=== PATIENT | male | born 1970 | race Caucasian/White ===

== ENCOUNTER 2021-05-11 08:00 | Outpatient (CLI) | payer OTHER ==
--- NOTE | 2021-05-11 11:41 | XRAY Report ---
PROCEDURE: Chest 2 View X-Ray INDICATIONS: Productive cough TECHNIQUE: 2 view(s) of the chest. COMPARISON: None. FINDINGS: Surgical changes and devices: None. Lungs and pleura: No pleural effusions or pneumothorax. Lungs are clear. Mediastinum: Mediastinal contours are normal. Heart size is normal. Bones and chest wall: No suspicious bony abnormalities. Soft tissues appear unremarkable. IMPRESSION: No acute cardiopulmonary process demonstrated radiographically. Reviewed by: Daniel Evans MD on 05/11/2021 11:40 AM [facility] Approved by: Daniel Evans MD on 05/11/2021 11:40 AM [facility] Station ID: [id number]
== END 2021-05-11 23:59 | disposition home or self-care (01) ==
LOC: DI.S 08:00
PROVIDERS: ATTEND Physician Assistant Medical
DX: R05.8 Other specified cough (principal)

== ENCOUNTER 2021-12-12 11:21 | Emergency (ER) | payer OTHER ==
[2021-12-12 11:50] LABS: BASOPHILS # (AUTO) 0.1 10^3/uL (0.0-0.1); BASOPHILS % (AUTO) 1.4 %; EOSINOPHILS # (AUTO) 0.6 10^3/uL (0.0-0.7); EOSINOPHILS % (AUTO) 6.6 %; HCT - HEMATOCRIT 47.8 % (42.0-52.0); HGB - HEMOGLOBIN 15.6 g/dL (14.0-18.0); LYMPHOCYTES # (AUTO) 1.7 10^3/uL (1.5-3.5); LYMPHOCYTES % (AUTO) 17.3 %; MEAN CORPUSCULAR HEMOGLOBIN 29.7 pg (27.0-31.0); MEAN CORPUSCULAR HGB CONC 32.6 g/dL (32.0-36.0); MEAN CORPUSCULAR VOLUME 90.9 fL (80.0-94.0); MEAN PLATELET VOLUME 10.2 fL (7.4-11.4); MONOCYTES # (AUTO) 0.6 10^3/uL (0.0-1.0); MONOCYTES % (AUTO) 6.2 %; NEUTROPHILS # (AUTO) 6.6 10^3/uL (1.5-6.6); NRBC ABSOLUTE COUNT (AUTO) 0.03 x10^3/uL; NUCLEATED RED BLOOD CELLS AUTO 0.3 /100WBC; PLT - PLATELET COUNT 225 10^3/uL (130-450); RED BLOOD COUNT 5.26 10^6/uL (4.70-6.10); RED CELL DISTRIBUTION WIDTH 12.7 % (12.0-15.0); WHITE BLOOD COUNT 9.7 x10^3/uL (4.8-10.8)
[2021-12-12 12:06] LABS: ALBUMIN 4.5 g/dL (3.2-5.5); ALBUMIN/GLOBULIN RATIO 1.5 (1.0-2.2); BILIRUBIN,TOTAL 0.9 mg/dL (0.2-1.0); CALCIUM 9.3 mg/dL (8.5-10.3); CREATININE 0.8 mg/dL (0.6-1.2); POTASSIUM 4.3 mmol/L (3.5-5.0); TOTAL PROTEIN 7.6 g/dL (6.7-8.2)
--- NOTE | 2021-12-12 14:28 | ED Physician Documentation ---
PD HPI BACK PAIN - Stated complaint Stated Complaint: BACK PAIN - Chief complaint Chief Complaint: Abd Pain - History obtained from History obtained from: Patient - History of Present Illness Timing - onset: Today (several hours ago abruptly at home.) Timing - details: Abrupt onset, Still present Pain level max: 10 Pain level now: 6 Location: Mid, Right (right flank to right lower abd pain abruptly, not improved with position.) Quality: Pain, Sharp. No: Spasm Associated symptoms: No: Fever, Weakness, Numbness, Incontinent of urine Improves with: No: Rest, Position, Meds (tylenol and ibuprofen at home few hours ago.) Worsened by: No: Movement, Twisting, Palpation Contributing factors: No: Lifting, Twisting, Trauma Similar symptoms before: Has not had sx before Recently seen: Not recently seen Review of Systems Constitutional: reports: Myalgias (chronic due to MS, no new areas of pain.). denies: Fever, Chills Nose: denies: Rhinorrhea / runny nose, Congestion Throat: denies: Sore throat Cardiac: denies: Chest pain / pressure Respiratory: denies: Cough GI: reports: Abdominal Pain, Nausea, Vomiting (several times at onset of the pain). denies: Diarrhea : denies: Dysuria, Frequency Neurologic: denies: Generalized weakness, Focal weakness PD PAST MEDICAL HISTORY - Past Medical History Cardiovascular: None Respiratory: None Neuro: Multiple sclerosis Endocrine/Autoimmune: None - Past Surgical History Past Surgical History: No - Present Medications Home Medications: Ambulatory Orders Medication Instructions Recorded Confirmed Ondansetron Odt [Zofran] 4 mg TL Q6H PRN #10 tablet 12/12/21 Tamsulosin [Flomax] 0.4 mg PO DAILY #5 cap 12/12/21 dexAMETHasone [Decadron] 4 mg PO DAILY #5 tablet 12/12/21 oxyCODONE [Roxicodone] 5 mg PO Q6H PRN #12 tablet 12/12/21 - Allergies Allergies/Adverse Reactions: Allergies Allergy/AdvReac Type Severity Reaction Status Date / Time No Known Drug Allergies Allergy Verified 12/12/21 11:30 PD ED PE NORMAL - Vitals Vital signs reviewed: Yes - General General: Alert and oriented X 3, No acute distress, Well developed/nourished - Neck Neck: Supple, no meningeal sign, No adenopathy - Cardiac Cardiac: RRR, No murmur - Respiratory Respiratory: Clear bilaterally - Abdomen Abdomen: Normal bowel sounds, Soft. No: Non tender (some tenderness without guarding RLQ/mid abd area. No percussion tenderness. ) - Male Male : Deferred - Rectal Rectal: Deferred - Back Back: No spinal TTP, Other (right CVA area tender mildly to percussion.) - Derm Derm: Normal color, Warm and dry Results - Vitals Vitals: Vital Signs - 24 hr 12/12/21 12/12/21 12/12/21 11:31 15:00 17:22 Temperature 37.5 C Heart Rate 77 93 117 H Respiratory 16 18 18 Rate Blood Pressure 133/80 H 126/86 H 120/94 H O2 Saturation 99 97 98 Oxygen O2 Source Room air - Labs Labs: Laboratory Tests 12/12/21 12/12/21 12/12/21 11:40 11:47 11:47 WBC 9.7 RBC 5.26 Hgb 15.6 Hct 47.8 MCV 90.9 MCH 29.7 MCHC 32.6 RDW 12.7 Plt Count 225 MPV 10.2 Neut # (Auto) 6.6 Lymph # (Auto) 1.7 Swisher # (Auto) 0.6 Eos # (Auto) 0.6 Baso # (Auto) 0.1 Absolute Nucleated RBC 0.03 Nucleated RBC % 0.3 Sodium 140 Potassium 4.3 Chloride 102 Carbon Dioxide 27 Anion Gap 11.0 BUN 11 Creatinine 0.8 Estimated GFR (MDRD) 102 Glucose 198 H Calcium 9.3 Total Bilirubin 0.9 AST 65 H ALT 90 H Alkaline Phosphatase 68 Total Protein 7.6 Albumin 4.5 Globulin 3.1 Albumin/Globulin Ratio 1.5 Lipase 43 Urine Color YELLOW Urine Clarity CLEAR Urine pH 6.0 Ur Specific [place] 1.010 Urine Protein NEGATIVE Urine Glucose (UA) NEGATIVE Urine Ketones NEGATIVE Urine Occult Blood LARGE H Urine Nitrite NEGATIVE Urine Bilirubin NEGATIVE Urine Urobilinogen 0.2 (NORMAL) Ur Leukocyte Esterase TRACE H Urine RBC 6-10 H Urine WBC 0-3 Ur Squamous Epith Cells NONE SEEN Urine Bacteria Rare Ur Microscopic Review INDICATED Urine Culture Comments INDICATED - Rads (name of study) KUB CT Radiology: Prelim report reviewed (3 mm distal urteral stone with mod hydronephrosis. at least 2 nonobstructing stones in right kidney. ), See rad report PD MEDICAL DECISION MAKING - ED course Complexity details: reviewed results (discussed with patient and gave copy of CT report and some images printed out. ), considered differential (sounds likely kidney stone. he declined opiod meds here as pain was improving to mild already. ), d/w patient Departure - Departure Disposition: 01 Home, Self Care Clinical Impression: Right sided abdominal pain, Ureterolithiasis Condition: Stable Record reviewed to determine appropriate education?: Yes Instructions: ED Stone Renal W Colic Prescriptions: dexAMETHasone [Decadron] 4 mg PO DAILY #5 tablet Tamsulosin [Flomax] 0.4 mg PO DAILY #5 cap oxyCODONE [Roxicodone] 5 mg PO Q6H PRN #12 tablet PRN Reason: Pain Ondansetron Odt [Zofran] 4 mg TL Q6H PRN #10 tablet PRN Reason: Nausea / Vomiting Comments: Your pain is from a small 3 mm kidney stone passing down the ureter. It is most of the way to the bladder but still at the end of the ureter. We would try to promote passage of this a little bit sooner with a combination of anti-inflammatories and an antispasmodic for the ureter (Decadron and tamsulosin). Stay well-hydrated but no reason to over hydrate per se. Tylenol if needed for mild pains or naproxen/ibuprofen. Add ondansetron if needed for nausea. Add oxycodone if needed for worse pain. I transmitted prescriptions for these to [facility] in [place]. Return to the ER if needed for severe pain. The majority of stones of this size will pass over several days. Follow-up with your primary care if not improving in that timeframe and still needing medication for pain. I am prescribing a short course of narcotic pain medication for you. These are potentially dangerous and addictive medications that should be used carefully. These medications may constipate you. Take an owyp-ref-kuyungr stool softener such as docusate twice daily with plenty of water while taking these medications. If you go 24 hours without a bowel movement, take [id number]-ryedrxw MiraLAX, per package instructions. Do not drink or drive while taking these medications. If you received narcotic or sedating medications while in the emergency department do not drive for 24 hours. Store this medication in a safe, secure place and out of reach of children. It is a violation of federal law to give or sell this medication to another person or to use in a manner other than prescribed. The ED will not refill narcotic prescriptions, including prescriptions lost or stolen. You can dispose of unwanted medications at the [facility] office or at several pharmacies such as [facility]. Discharge Date/Time: 12/12/21 17:22
[2021-12-12 14:49] LABS: BILIRUBIN,URINE NEGATIVE (NEGATIVE); GLUCOSE, URINE (UA) NEGATIVE (NEGATIVE); KETONES,URINE (UA) NEGATIVE (NEGATIVE); LEUKOCYTE ESTERASE, URINE TRACE (NEGATIVE); NITRITE,URINE NEGATIVE (NEGATIVE); OCCULT BLOOD,URINE LARGE (NEGATIVE); PROTEIN,URINE NEGATIVE (NEGATIVE); UROBILINOGEN,URINE 0.2 (NORMAL) E.U./dL (NORMAL)
[2021-12-12 14:50] LABS: CLARITY,URINE CLEAR (CLEAR)
[2021-12-12 14:59] LABS: BACTERIA,URINE Rare /HPF (None Seen); SQUAMOUS EPITHELIAL CELL,UR NONE SEEN (<= Few); WBC,URINE 0-3 /HPF (0-3)
--- NOTE | 2021-12-12 15:52 | CT Report ---
PROCEDURE: Abdomen/Pelvis WO INDICATIONS: right flank/abd pain today TECHNIQUE: Noncontrast 5 mm thick sections acquired from the diaphragms to the symphysis. 5 mm coronal and sagi ttal reformats were then performed. For radiation dose reduction, the following was used: automated exposure control, adjustment of mA and/or kV according to patient size. COMPARISON: None. FINDINGS: Image quality: Excellent. ABDOMEN: Lung bases: Lung bases are clear. Heart size is normal. Solid organs: Diffuse fatty liver infiltration can be seen. The liver demonstrates normal size. No liver lesions are detected. The spleen demonstrates normal size and demonstrates no suspicious lesi ons. Gallbladder wall does not appear thickened. Pancreas is normal in contours. No adrenal nodu les. Within the distal right ureter, there is a 3 mm obstructing stone seen, as on series 6 image 73 and o n series 3 image 171. There is associated mild to moderate right-sided hydroureter and hydronephrosis . Bilateral nonobstructing kidney stones are seen, which measure 1 to 2 mm. No left-sided hydronephrosi s is seen. The kidneys demonstrate normal size. Peritoneum and bowel: Unenhanced bowel loops demonstrate normal wall thickness and caliber. No free fluid or air. Nodes and vessels: No retroperitoneal or mesenteric adenopathy by size criteria. Aorta and inferior vena cava are normal in caliber. Miscellaneous: No ventral hernias. PELVIS: Genitourinary: Bladder wall thickness is normal. Miscellaneous: No inguinal adenopathy. There is a moderately sized fat-containing left inguinal her liliane. Bones: No suspicious bony lesions. No vertebral body compression fractures. IMPRESSION: 3 mm obstructing stone within the distal right ureter, with associated hydroureter and hydronephrosis . Tiny bilateral nonobstructing kidney stones are seen. Incidental note is made of: Fatty liver infiltration Fat-containing left inguinal hernia Reviewed by: Manuel Almanza MD on 12/12/2021 2:50 PM [facility] Approved by: Manuel Almanza MD on 12/12/2021 2:50 PM [facility] Station ID: [id number]
[2021-12-12] MEDS ORDERED: ACETAMINOPHEN 325 MG TABLET PO STA (16:35)
[2021-12-12] MEDS ORDERED: TAMSULOSIN 0.4 MG CAPSULE PO STA (16:35)
[2021-12-12] MEDS ORDERED: CHERRY SYRUP 10 ML UDC PO ONE (16:35)
[2021-12-12] MEDS ORDERED: DEXAMETHASONE 10 MG/ML VIAL PO STA (16:35)
[2021-12-12 17:24] VITALS: BP 120/94
== END 2021-12-12 17:22 | disposition home or self-care (01) ==
LOC: ED 11:21
DX: N13.2 Hydronephrosis with renal and ureteral calculous obstruction (principal); G35 Multiple sclerosis
CPT/HCPCS: 36415; 74176; 80053; 81001; 83690; 85025; 87086; 99284; A9270; 81003

== ENCOUNTER 2022-11-19 13:04 | Outpatient (CLI) | payer OTHER ==
--- NOTE | 2022-11-19 20:25 | Ultrasound Report ---
PROCEDURE: Pelvic Limited or F/U INDICATIONS: INGUINAL HERNIA TECHNIQUE: Real-time transabdominal scanning was performed of the pelvic organs, with image documentation. COMPARISON: None. FINDINGS: Ultrasound images of the left groin were performed demonstrating a left-sided inguinal hernia with a 2.9 cm defect in the wall. The hernia does not fully reduce. No peristalsing bowel is identified. IMPRESSION: Fat-containing left inguinal hernia which does not fully reduce. Reviewed by: Markus Ferguson on 11/19/2022 7:24 PM [facility] Approved by: Markus Ferguson on 11/19/2022 7:24 PM [facility] Station ID: [id number]
== END 2022-11-19 13:05 | disposition home or self-care (01) ==
LOC: DI 13:04
PROVIDERS: ATTEND Nurse Practitioner Family
DX: K40.90 Unilateral inguinal hernia, without obstruction or gangrene, not specified as recurrent (principal)

== ENCOUNTER 2023-01-12 10:29 | Day surgery (SDC) | payer OTHER ==
[2023-01-12] MEDS ORDERED: LACTATED RINGERS 1,000 ML IV ONE ×2 (10:30→14:32)
[2023-01-12] MEDS ORDERED: ceFAZolin 2 GM VIAL ONE (11:01)
[2023-01-12] MEDS ORDERED: ALBUTEROL NEB 2.5 MG/3 ML INH ONE (11:30)
[2023-01-12] MEDS ORDERED: PROPOFOL 500 MG/50 ML 500 MG/50 ML VIAL ONE (11:35)
[2023-01-12] MEDS ORDERED: KETAMINE 200 MG/20 ML VIAL ONE (11:36)
[2023-01-12] MEDS ORDERED: fentaNYL 100 MCG/2 ML VIAL ONE ×2 (11:36→15:18)
[2023-01-12] MEDS ORDERED: NALOXONE 0.4 MG/ML VIAL IVP PRN (11:38)
[2023-01-12] MEDS ORDERED: ONDANSETRON 4 MG/2 ML VIAL IVP PRN ×2 (11:38→14:02)
[2023-01-12] MEDS ORDERED: ATROPINE ABBOJECT 1 MG/10 ML SYRINGE IVP PRN (11:38)
[2023-01-12] MEDS ORDERED: ePHEDrine 50 MG/ML VIAL IVP PRN (11:38)
[2023-01-12] MEDS ORDERED: ALBUTEROL NEB 2.5 MG/3 ML INH PRN (11:38)
[2023-01-12] MEDS ORDERED: HYDROmorphone 0.5 MG/0.5 ML SYRINGE IVP PRN ×2 (11:38→14:02)
[2023-01-12] MEDS ORDERED: fentaNYL 100 MCG/2 ML VIAL IVP PRN (11:38)
--- NOTE | 2023-01-12 11:38 | ANESTHESIA ---
Pre-Anesthesia VS, & Labs - Diagnosis L inguinal hernia - Procedure L open inguinal hernia repair Vital Signs: Temp Pulse Resp BP Pulse Ox O2 Flow Rate 36.0 C L 84 18 130/94 H 96 01/12/23 10:30 01/12/23 10:30 01/12/23 10:30 01/12/23 10:30 01/12/23 10:30 Height: 5 ft 7 in Weight (kg): 90 kg Body Mass Index: 31.1 BMI Classification: Obese - NPO >8 hours - Lab Results Current Lab Results: Laboratory Tests 01/12/23 10:54: POC Whole Bld Glucose 170 H Lab results reviewed: Yes Home Medications and Allergies Home Medications: Ambulatory Orders Albuterol 2.5 mg INH TID PRN 01/09/23 Albuterol Sulf [Ventolin Hfa Inhaler] 1 - 2 puffs INH Q4HR PRN 01/09/23 Dextroamphetamine/Amphetamine [Dextroamp-Amphetamine 5 mg Tab] 10 mg PO DAILY 01/09/23 Fluticasone/Salmeterol [Advair 250-50 Diskus] 1 each IH BID 01/09/23 Lisinopril [Zestril] 10 mg PO DAILY 01/09/23 Metformin HCl 1,000 mg PO BID 01/09/23 Montelukast [Singulair] 10 mg PO QPM 01/09/23 Pregabalin [Lyrica] 75 mg PO BID 01/09/23 Pseudoephedrine HCl [12 Hour Decongestant] 120 mg PO DAILY 01/09/23 Tadalafil [Cialis] 1 - 2 tab PO PRN PRN 01/09/23 Triamcinolone 0.1% Oint [Kenalog 0.1% Oint] 1 applic TOP BID PRN 01/09/23 Tysabri 300 mg IV ONCE 01/09/23 glyBURIDE [Glyburide] 5 mg PO QPM 01/09/23 glyBURIDE [Glyburide] 7.5 mg PO DAILY 01/09/23 Topiramate [Topiramate ER] 100 mg PO DAILY 01/12/23 Albuterol 2.5 mg INH TID PRN 01/09/23 Albuterol Sulf [Ventolin Hfa Inhaler] 1 - 2 puffs INH Q4HR PRN 01/09/23 Dextroamphetamine/Amphetamine [Dextroamp-Amphetamine 5 mg Tab] 10 mg PO DAILY 01/09/23 Fluticasone/Salmeterol [Advair 250-50 Diskus] 1 each IH BID 01/09/23 Lisinopril [Zestril] 10 mg PO DAILY 01/09/23 Metformin HCl 1,000 mg PO BID 01/09/23 Montelukast [Singulair] 10 mg PO QPM 01/09/23 Pregabalin [Lyrica] 75 mg PO BID 01/09/23 Pseudoephedrine HCl [12 Hour Decongestant] 120 mg PO DAILY 01/09/23 Tadalafil [Cialis] 1 - 2 tab PO PRN PRN 01/09/23 Triamcinolone 0.1% Oint [Kenalog 0.1% Oint] 1 applic TOP BID PRN 01/09/23 Tysabri 300 mg IV ONCE 01/09/23 glyBURIDE [Glyburide] 5 mg PO QPM 01/09/23 glyBURIDE [Glyburide] 7.5 mg PO DAILY 01/09/23 Topiramate [Topiramate ER] 100 mg PO DAILY 01/12/23 Allergies/Adverse Reactions: Allergies Allergy/AdvReac Type Severity Reaction Status Date / Time No Known Drug Allergies Allergy Verified 12/12/21 11:30 Anes History & Medical History - Anesthetic History Anesthesia Complications: reports: No previous complications Family history of Anesthesia Complications: Denies Family history of Malignant Hyperthermia: Denies - Medical History Cardiovascular: reports: None Pulmonary: reports: Asthma, Sleep apnea, CPAP use Gastrointestinal: reports: None Urinary: reports: None Neuro: reports: Multiple sclerosis Musculoskeletal: reports: Chronic back pain, Other Endocrine/Autoimmune: reports: Type 2 diabetes Skin: reports: None Smoking Status: Never smoker Psychosocial: reports: Cannabis - Surgical History Eyes Ears Nose Throat (EENT): reports: Tonsil/Adenoidectomy Exam General: Alert, Oriented x3, Cooperative Dental: WNL Mouth Openin Fingerbreadth Neck Mobility: Normal Mallampati classification: III Thyromental Distance: 4-6 cm Respiratory: Lungs clear Cardiovascular: Regular rate Plan Anesthesia Type: General Consent for Procedure(s) Verified and Reviewed: Yes Code Status: Attempt Resuscitation ASA classification: 3-Severe systemic disease Is this case an emergency?: No
[2023-01-12] MEDS ORDERED: BUPIVACAINE 0.25% PF 30 ML VIAL ONE ×2 (11:39→12:34)
[2023-01-12] MEDS ORDERED: LACTATED RINGERS 1,000 ML IV SCH (12:00)
[2023-01-12] MEDS ORDERED: BUPIVACAINE 0.25% PF 30 ML VIAL SUBQ ONE (12:29)
[2023-01-12] MEDS ORDERED: LACTATED RINGERS 50 ML IV ONE (13:55)
[2023-01-12] MEDS ORDERED: HYDROcod/ACETAM 5/325 MG TABLET PO PRN (14:02)
--- NOTE | 2023-01-12 14:11 | OPERATIVE REPORT ---
Operative Report - General Procedure Date: 01/12/23 Planned Procedure: open left inguinal hernia repair Pre-Op Diagnosis: left inguinal hernia Procedure Performed: open repair incarcerated slider type inguinal hernia Post Op Diagnosis: slider inguinal hernia, incarcerated - Procedure Note Primary Surgeon: puneet bermudez Anesthesia Technique: General LMA, Local Pathology: not sent Estimated Blood Loss (mL): 2 Drain/Tube Type: Other (none) Indications: painful hernia bulge Findings: incarcerated slider type hernia with corner of bladder Complications: none - Other Other Information/Narrative: Patient was properly identified brought to the operating room and placed in supine position. Sequential compression devices were placed. General endotracheal anesthesia was induced. He was prepped and draped in a sterile fashion and given preoperative antibiotics. Local anesthetic was given throughout the procedure. A 5 cm incision was made in the direction of Marin's lines just cephalad of the pubic tubercle. Dissection proceeded with cutting current cautery. The superficial epigastric vein was identified clamped divided and tied with 3-0 Vicryl. Dissection proceeded down to the aponeurosis. The aponeurosis was opened in the direction of its fibers and extended to the external ring. Cord structures were mobilized and brought up. The nerves were carefully protected and preserved. Cord structures were mobilized and brought up. An indirect inguinal hernia was present. The hernia sac was mobilized off the cord structures. He had a large slider type hernia measuring approximately 6 to 8 x 4 cm. The hernia sac was opened. Tissue consistent with edge of the bladder was carefully mobilized from within the hernia sac and reduced. The hernia sac was then closed from the inside with a 2-0 silk pursestring suture. Preperitoneal fat was removed. The base was tied with 2 O vicryl. Polypropylene mesh was cut to size and with tails. The mesh was secured with multiple interrupted 0 Ethibond sutures. Sutures were placed along the pubic tubercle, Jorje's ligament area and along the shelving border of Poupart's ligament. Sutures were placed medially along the abdominal wall musculature and internal oblique. The medial tail of the mesh was secured to the shelving border of Poupart's ligament with 3 interrupted 0 ethibond sutures recreating the internal ring of appropriate size. An additional suture was placed in the crotch of the mesh recreating an internal ring of appropriate size. Aponeurosis was closed with a running 2-0 Vicryl suture. The opposite was closed with interrupted 3-0 Vicryl suture. Buried interrupted subdermal 3-0 Vicryl sutures were then placed. And was closed with a running 4-0 Monocryl subcuticular suture. Dressing was applied. Patient was awakened and brought to recovery in good condition.
[2023-01-12] MEDS ORDERED: HYDROmorphone 1 MG/ML CARPUJECT ONE (15:15)
[2023-01-12] MEDS ORDERED: HYDROcod/ACETAM 5/325 MG TABLET ONE (16:06)
[2023-01-12] MEDS ORDERED: ONDANSETRON 4 MG/2 ML VIAL ONE (16:27)
[2023-01-12 16:29] VITALS: BP 134/90; O2SAT 94
== END 2023-01-12 10:30 | disposition home or self-care (01) ==
LOC: SDS 10:29
PROVIDERS: ATTEND Surgery
DX: K40.30 Unilateral inguinal hernia, with obstruction, without gangrene, not specified as recurrent (principal); E11.9 Type 2 diabetes mellitus without complications; J45.909 Unspecified asthma, uncomplicated; G47.30 Sleep apnea, unspecified; E66.9 Obesity, unspecified; Z68.31 Body mass index [BMI] 31.0-31.9, adult; Z79.84 Long term (current) use of oral hypoglycemic drugs
CPT/HCPCS: 49507; C1781; J1170; J3490; J7120

== ENCOUNTER 2023-05-16 08:00 | Outpatient (CLI) | payer OTHER ==
--- NOTE | 2023-05-16 13:11 | XRAY Report ---
PROCEDURE: Chest 2V INDICATIONS: ACUTE BRONCHITIS TECHNIQUE: 2 views of the chest were acquired. COMPARISON: None. FINDINGS: Surgical changes and devices: None. Lungs and pleura: No pleural effusions or pneumothorax. Lungs are clear. Mediastinum: Mediastinal contours appear normal. Heart size is normal. Bones and chest wall: No suspicious bony lesions. Overlying soft tissues appear unremarkable. IMPRESSION: No acute cardiopulmonary process. Reviewed by: Mirtha Reinoso MD, PhD on 05/16/2023 1:[address] [facility] Approved by: Mirtha Reinoso MD, PhD on 05/16/2023 1:[address] [facility] Station ID: [id number]
== END 2023-05-16 23:59 | disposition home or self-care (01) ==
LOC: DI.S 08:00
PROVIDERS: ATTEND Physician Assistant
DX: J20.9 Acute bronchitis, unspecified (principal)

== ENCOUNTER 2023-05-30 12:00 | Outpatient (CLI) | payer OTHER ==
[2023-05-30 15:10] LABS: BILIRUBIN,URINE NEGATIVE (NEGATIVE); GLUCOSE, URINE (UA) >=1000 mg/dL (NEGATIVE); KETONES,URINE (UA) NEGATIVE (NEGATIVE); LEUKOCYTE ESTERASE, URINE NEGATIVE (NEGATIVE); NITRITE,URINE NEGATIVE (NEGATIVE); OCCULT BLOOD,URINE NEGATIVE (NEGATIVE); PROTEIN,URINE NEGATIVE (NEGATIVE); UROBILINOGEN,URINE 0.2 (NORMAL) E.U./dL (NORMAL)
[2023-05-30 15:13] LABS: BASOPHILS # (AUTO) 0.1 10^3/uL (0.0-0.1); EOSINOPHILS # (AUTO) 0.4 10^3/uL (0.0-0.7); EOSINOPHILS % (AUTO) 4.3 %; HCT - HEMATOCRIT 47.6 % (42.0-52.0); HGB - HEMOGLOBIN 15.1 g/dL (14.0-18.0); LYMPHOCYTES # (AUTO) 3.7 10^3/uL (1.5-3.5); LYMPHOCYTES % (AUTO) 42.7 %; MEAN CORPUSCULAR HEMOGLOBIN 28.6 pg (27.0-31.0); MEAN CORPUSCULAR HGB CONC 31.7 g/dL (32.0-36.0); MEAN CORPUSCULAR VOLUME 90.2 fL (80.0-94.0); MEAN PLATELET VOLUME 11.9 fL (7.4-11.4); MONOCYTES # (AUTO) 0.9 10^3/uL (0.0-1.0); MONOCYTES % (AUTO) 9.8 %; NEUTROPHILS # (AUTO) 3.6 10^3/uL (1.5-6.6); NEUTROPHILS % (AUTO) 41.2 %; NRBC ABSOLUTE COUNT (AUTO) 0.03 x10^3/uL; NUCLEATED RED BLOOD CELLS AUTO 0.3 /100WBC; PLT - PLATELET COUNT 204 10^3/uL (130-450); RED BLOOD COUNT 5.28 10^6/uL (4.70-6.10); RED CELL DISTRIBUTION WIDTH 13.7 % (12.0-15.0); WHITE BLOOD COUNT 8.8 x10^3/uL (4.8-10.8)
[2023-05-30 15:14] LABS: CLARITY,URINE CLEAR (CLEAR)
[2023-05-30 15:42] LABS: ALBUMIN 4.4 g/dL (3.2-5.5); ALBUMIN/GLOBULIN RATIO 1.8 (1.0-2.2); BILIRUBIN,TOTAL 0.7 mg/dL (0.2-1.0); CALCIUM 9.3 mg/dL (8.5-10.3); CREATININE 0.7 mg/dL (0.6-1.3); POTASSIUM 3.7 mmol/L (3.5-4.5); TOTAL PROTEIN 6.9 g/dL (6.4-8.9)
[2023-05-30 15:47] LABS: BACTERIA,URINE None Seen /HPF (None Seen); RBC,URINE 0-5 /HPF (0-5); SQUAMOUS EPITHELIAL CELL,UR RARE Squamous (<= Few); WBC,URINE 0-3 /HPF (0-3)
[2023-05-30 21:23] LABS: ESTIMATED AVERAGE GLUCOSE 229 mg/dL (70-100); HEMOGLOBIN A1c% 9.6 % (4.27-6.07)
== END 2023-05-30 12:01 | disposition home or self-care (01) ==
LOC: LAB.S 12:00
PROVIDERS: ATTEND Emergency Medicine
DX: E11.9 Type 2 diabetes mellitus without complications (principal)
CPT/HCPCS: 36415; 80053; 81001; 83036; 85025; 87086

== ENCOUNTER 2023-09-22 09:18 | Outpatient (CLI) | payer OTHER ==
[2023-09-22 15:06] LABS: BASOPHILS # (AUTO) 0.1 10^3/uL (0.0-0.1); BASOPHILS % (AUTO) 1.5 %; EOSINOPHILS # (AUTO) 0.6 10^3/uL (0.0-0.7); HGB - HEMOGLOBIN 14.9 g/dL (14.0-18.0); LYMPHOCYTES # (AUTO) 3.5 10^3/uL (1.5-3.5); LYMPHOCYTES % (AUTO) 39.7 %; MEAN CORPUSCULAR HEMOGLOBIN 29.5 pg (27.0-31.0); MEAN CORPUSCULAR HGB CONC 33.1 g/dL (32.0-36.0); MEAN CORPUSCULAR VOLUME 89.1 fL (80.0-94.0); MEAN PLATELET VOLUME 11.4 fL (7.4-11.4); MONOCYTES # (AUTO) 0.8 10^3/uL (0.0-1.0); MONOCYTES % (AUTO) 8.6 %; NEUTROPHILS # (AUTO) 3.8 10^3/uL (1.5-6.6); NEUTROPHILS % (AUTO) 42.3 %; NRBC ABSOLUTE COUNT (AUTO) 0.09 x10^3/uL; PLT - PLATELET COUNT 195 10^3/uL (130-450); RED BLOOD COUNT 5.05 10^6/uL (4.70-6.10); RED CELL DISTRIBUTION WIDTH 13.2 % (12.0-15.0); WHITE BLOOD COUNT 8.9 x10^3/uL (4.8-10.8)
[2023-09-22 15:15] LABS: ALBUMIN 4.4 g/dL (3.2-5.5); ALBUMIN/GLOBULIN RATIO 1.6 (1.0-2.2); BILIRUBIN,TOTAL 0.6 mg/dL (0.2-1.0); CALCIUM 10.5 mg/dL (8.5-10.3); CREATININE 0.7 mg/dL (0.6-1.3); POTASSIUM 3.8 mmol/L (3.5-4.5); TOTAL PROTEIN 7.2 g/dL (6.4-8.9)
[2023-09-22 19:56] LABS: ESTIMATED AVERAGE GLUCOSE 252 mg/dL (70-100); HEMOGLOBIN A1c% 10.4 % (4.27-6.07)
== END 2023-09-22 09:19 | disposition home or self-care (01) ==
LOC: LAB.S 09:18
PROVIDERS: ATTEND Physician Assistant Medical
DX: E11.9 Type 2 diabetes mellitus without complications (principal)
CPT/HCPCS: 36415; 80053; 83036; 85025

== ENCOUNTER 2024-02-14 14:09 | Outpatient (CLI) | payer OTHER | END 2024-02-14 14:10 | disposition home or self-care (01) | LOC: LAB.S 14:09 | PROVIDERS: ATTEND Psychiatry & Neurology Neurology | DX: G35 Multiple sclerosis (principal) | CPT/HCPCS: 36415; 80074; 80076; 81599; 82784; 86787; 87389 ==